=== PATIENT | female | born 1960 | race Caucasian/White ===

== ENCOUNTER 2016-12-04 00:52 | Emergency (ER) | payer OTHER ==
[~2016-12-04] VITALS: Ht 167.6 cm; Wt 58.0 kg
[~2016-12-04 00:52] MED LIST: CITA20 PO; XANA0.5T PO
[2016-12-04 00:57] VITALS: BP 125/82; PULSE 93; RESP 24; TEMP 97.8
[2016-12-04] MEDS ORDERED: HALOPERIDOL LACTATE 5 MG/ML AMP IM ONE (01:00)
[2016-12-04] MEDS ORDERED: LORazepam 2 MG/ML VIAL IM ONE (01:00)
[2016-12-04] MEDS ORDERED: SODIUM CHLORIDE 0.9% FLUSH 10 ML FLUSH IVF PRN (01:00)
[2016-12-04] MEDS ORDERED: SODIUM CHLOR 0.9% 1000 ML INJ 1,000 ML IV ONE (01:00)
[2016-12-04] MEDS ORDERED: CELE40TA PO (01:20)
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
[2016-12-04 02:20] LABS: AUTOMATED NEUTROPHIL # 4.3 TH/MM3 (1.8-7.7); BASOPHIL # 0.1 TH/MM3 (0-0.2); BASOPHIL % 0.8 % (0.0-2.0); EOSINOPHIL # 0.4 TH/MM3 (0-0.4); EOSINOPHIL % 3.6 % (0.0-4.0); LYMPHOCYTE # 5.4 TH/MM3 (1.0-4.8); MEAN CELL VOLUME 94.3 FL (80.0-100.0); MEAN CORPUSCULAR HEMOGLOBIN 32.2 PG (27.0-34.0); MEAN CORPUSCULAR HGB CONC 34.2 % (32.0-36.0); MONO % 5.8 % (0.0-8.0); NEUT % 39.8 % (16.0-70.0); PLATELET COUNT 334 TH/MM3 (150-450); RED BLOOD COUNT 4.25 MIL/MM3 (4.00-5.30); RED CELL DISTRIBUTION WIDTH 14.3 % (11.6-17.2); WHITE BLOOD COUNT 10.8 TH/MM3 (4.0-11.0)
[2016-12-04 02:21] LABS: HEMO FLAGS AUTO DIFF
[2016-12-04 02:27] LABS: ALT (GPT) 35 U/L (10-53); ANION GAP 16 MEQ/L (5-15); AST (GOT) 29 U/L (15-37); BICARBONATE 20.1 MEQ/L (21.0-32.0); BLOOD UREA NITROGEN 20 MG/DL (7-18); CHLORIDE 107 MEQ/L (98-107); GLOMERULAR FILTRATION RATE 55 ML/MIN (>89); POTASSIUM 3.8 MEQ/L (3.5-5.1); SODIUM (NA) 143 MEQ/L (136-145)
[2016-12-04 02:30] LABS: ALKALINE PHOSPHATASE 88 U/L (45-117); TOTAL BILIRUBIN ADULT 0.2 MG/DL (0.2-1.0)
[2016-12-04 02:59] LABS: BANDS 1 % (0-6); EOSINOPHILS 6 % (0-4); PLATELET ESTIMATE SMEAR NORMAL (NORMAL); PLATELET MORPHOLOGY NORMAL (NORMAL); POLYS (SEG NEUTROPHILS) 36 % (16-70); SCAN/DIFF FINAL DIFF MANUAL; WBC DIFF SAMPLE 100
[2016-12-04 08:33] VITALS: BP 118/73; PULSE 67; RESP 16; O2SAT 97
[2016-12-04] MEDS ORDERED: LORA-392 PO (12:23)
[2016-12-04 14:00] VITALS: BP 98/56; PULSE 74; RESP 18
== END 2016-12-04 16:01 ==
LOC: NEPC 00:52 → NEPJ 16:01
DX: F43.25 Adjustment disorder with mixed disturbance of emotions and conduct (principal); F43.10 Post-traumatic stress disorder, unspecified; F10.94 Alcohol use, unspecified with alcohol-induced mood disorder
CPT/HCPCS: 80053; 80307; 84703; 85007; 85027; 96360; 96361; 96372; 99285; J1630; J2060; J7030